=== PATIENT | male | born 1940 | race Caucasian/White ===

== ENCOUNTER 2018-01-23 15:24 | Inpatient (IN) | payer MEDICARE, OTHER ==
[~2018-01-23] VITALS: Ht 185.4 cm; Wt 71.2 kg
[2018-01-23 16:56] LABS: Basophils # (auto) 0 uL; Basophils % (auto) 0.4 % (0.0-2.0); Eosinophils # (auto) 0 uL; Eosinophils % (auto) 0.1 % (0.0-7.0); Hematocrit 41.2 % (41.0-53.0); Hemoglobin 13.4 g/dL (13.5-17.5); Lymphocytes # (auto) 0.8 uL; Lymphocytes % (auto) 6.7 % (10.0-50.0); Mean Corpuscular Hemoglobin 29.6 pg (28.0-32.0); Mean Corpuscular Hgb Conc. 32.6 g/dL (32.0-36.0); Mean Corpuscular Volume 90.8 fL (80.0-100.0); Monocytes # (auto) 0.7 uL; Monocytes % (auto) 5.9 % (0.0-12.0); Neutrophils % (auto) 86.9 % (37.0-80.0); Nucleated Red Blood Cells % 0.2 %; Platelet Count (auto) 138 10^3/uL (140-450); Red Blood Cells 4.54 10^6/uL (4.5-5.90); Red Cell Distribution Width 18.7 % (11.8-14.3); White Blood Cell 11.5 10^3/uL (4.4-10.8)
[2018-01-23 17:06] LABS: Albumin 3.9 g/dL (3.4-5.0); BUN/Creatinine Ratio 48.8; Calcium 9.3 mg/dL (8.5-10.1); Potassium 3.9 mmol/L (3.5-5.1)
[2018-01-23 17:11] LABS: Bilirubin, Total 4.1 mg/dL (0.2-1.0)
[2018-01-23] MEDS ORDERED: SODIUM CHLORIDE 0.9% 1,000 ML IV ONE (19:40)
[2018-01-23] MEDS ORDERED: cefTRIAXone 1GM/50ML D5W 50 ML IV ONE (19:45)
[2018-01-23 21:15] LABS: INR 1.26 (0.9-1.15); Partial Thromboplastin Time 27.9 sec (23.78-33.04); Prothrombin Time 13.3 sec (9.27-12.13)
[2018-01-23] MEDS ORDERED: TEMAZEPAM 15 MG CAP PO PRN (23:30)
[2018-01-23] MEDS ORDERED: DOCUSATE SOD 100 MG CAP PO PRN (23:30)
[2018-01-23] MEDS ORDERED: HYDROcodone-ACET 5/325MG TAB PO PRN (23:30)
[2018-01-23] MEDS ORDERED: NITROGLYCERIN 0.4 MG SL TAB SL PRN (23:30)
[2018-01-23] MEDS ORDERED: MORPHINE SULFATE 4 MG/ML SYR/VIAL IV PRN (23:30)
[2018-01-23] MEDS ORDERED: ACETAMINOPHEN 325 MG TAB PO PRN (23:30)
[2018-01-23] MEDS ORDERED: ONDANSETRON HCL 4 MG/2 ML VIAL IV PRN (23:30)
[2018-01-24 05:00] VITALS: BP 111/65
[2018-01-24 06:27] LABS: Basophils # (auto) 0 uL; Basophils % (auto) 0.1 % (0.0-2.0); Eosinophils # (auto) 0 uL; Hematocrit 41.2 % (41.0-53.0); Hemoglobin 13.6 g/dL (13.5-17.5); Lymphocytes # (auto) 0.6 uL; Lymphocytes % (auto) 6.2 % (10.0-50.0); Mean Corpuscular Hemoglobin 30.3 pg (28.0-32.0); Monocytes # (auto) 0.5 uL; Monocytes % (auto) 5.3 % (0.0-12.0); Neutrophils # (auto) 8.7 uL; Neutrophils % (auto) 88.4 % (37.0-80.0); Nucleated Red Blood Cells % 0.1 %; Platelet Count (auto) 132 10^3/uL (140-450); Red Blood Cells 4.48 10^6/uL (4.5-5.90); Red Cell Distribution Width 18.8 % (11.8-14.3); White Blood Cell 9.8 10^3/uL (4.4-10.8)
[2018-01-24 06:45] LABS: Potassium 3.7 mmol/L (3.5-5.1)
[2018-01-24 06:52] LABS: Albumin 3.5 g/dL (3.4-5.0); BUN/Creatinine Ratio 51.4; Bilirubin, Total 3.3 mg/dL (0.2-1.0); Calcium 9.1 mg/dL (8.5-10.1); Total Protein 7.2 g/dL (6.4-8.2)
[2018-01-24 09:19] VITALS: BP 110/79
[2018-01-24] MEDS ORDERED: FAMOTIDINE 20 MG TAB PO SCH (10:00)
[2018-01-24] MEDS ORDERED: ENOXAPARIN SOD 30 MG/0.3 ML SYRINGE SC SCH (10:00)
[2018-01-24] MEDS: FAMOTIDINE 20 MG TAB PO SCH (10:00)
[2018-01-24] MEDS: ZINC SULFATE 220mg CAP or TAB PO SCH (10:00)
[2018-01-24] MEDS: ENOXAPARIN SOD 40 MG/0.4 ML SYRINGE SC SCH ×2 (10:31→10:35)
[2018-01-24] MEDS ORDERED: DILTIAZEM HCL 25 MG/5 ML VIAL IV ONE (11:15)
[2018-01-24] MEDS ORDERED: chlordiazePOXIDE HCL 25 MG CAP PO PRN (11:15)
[2018-01-24] MEDS: SODIUM CHLORIDE 0.9% 1,000 ML IV SCH ×2 (11:32→17:41)
[2018-01-24 11:47] LABS: Folate (Folic Acid) 17.32 ng/mL (5.38-24)
[2018-01-24] MEDS: THIAMINE INJ 100 MG, MULTIPLE VITAMIN 10 ML, FOLIC ACID 1 MG, MAGNESIUM SULF SDV 50% 8 ... IV SCH ×5 (12:38)
[2018-01-24 12:47] VITALS: BP 114/71
[2018-01-24 17:00] VITALS: BP 128/80
[2018-01-24] MEDS ORDERED: DIGO0.1262 PO (17:25)
[2018-01-24] MEDS ORDERED: APIX2.5T OR (17:25)
[2018-01-24] MEDS ORDERED: LEVO150T10 PO (17:25)
[2018-01-24] MEDS ORDERED: POTA1TAB61 PO (17:26)
[2018-01-24] MEDS ORDERED: METO2.5T11 PO (17:28)
[2018-01-24] MEDS ORDERED: MAGN400C3 PO (17:33)
[2018-01-24] MEDS ORDERED: ATOR20TA50 PO (17:33)
[2018-01-24] MEDS ORDERED: ZOLP12.564 PO (17:33)
[2018-01-24] MEDS ORDERED: METO25TA4 PO (17:33)
[2018-01-24] MEDS ORDERED: FURO40TA4 PO (17:33)
[2018-01-24] MEDS ORDERED: DIGOXIN (250MCG/ML) 2 ML AMPULE IV ONE (19:00)
[2018-01-24 22:00] VITALS: BP 129/65
[2018-01-25] MEDS: DILTIAZEM HCL 25 MG/5 ML VIAL IV SCH ×6 (02:41→22:00)
[2018-01-25 05:00] VITALS: BP 119/57
[2018-01-25] MEDS: SODIUM CHLORIDE 0.9% 1,000 ML IV SCH ×4 (05:27→20:35)
[2018-01-25 09:14] VITALS: BP 144/63
[2018-01-25] MEDS: DIGOXIN (250MCG/ML) 2 ML AMPULE IV SCH (09:37)
[2018-01-25] MEDS: ENOXAPARIN SOD 40 MG/0.4 ML SYRINGE SC SCH (09:37)
[2018-01-25] MEDS ORDERED: ALBUTEROL SULF 2.5 MG/0.5ML(0.5%) NEB SOLN ONE (10:46)
[2018-01-25 12:30] VITALS: BP 122/63
[2018-01-25] MEDS: THIAMINE INJ 100 MG, MULTIPLE VITAMIN 10 ML, FOLIC ACID 1 MG, MAGNESIUM SULF SDV 50% 8 ... IV SCH ×5 (12:37)
[2018-01-25 13:14] LABS: Urine Bacteria NONE SEEN /hpf (None Seen); Urine Blood 1+ /uL (Negative); Urine Hyaline Cast FEW /lpf (0 - 2); Urine Specific Gravity 1.018 (1.001-1.035); Urine WBC 193 /hpf (0 - 3); Urine WBC Clumps PRESENT /hpf (None Seen)
[2018-01-25] MEDS: ALBUTEROL SULF 2.5 MG/0.5ML(0.5%) NEB SOLN NEB PRN ×3 (13:15→21:06)
[2018-01-25] MEDS: IPRATROPIUM BROM 0.5 MG/2.5ML INH SOL NEB SCH ×2 (13:15→18:07)
[2018-01-25 17:22] VITALS: BP 122/63
[2018-01-25 17:34] VITALS: BP 122/56
[2018-01-25 22:00] VITALS: BP 115/67
[2018-01-25] MEDS: LORazepam 2MG/ML-1ML VIAL IV PRN (23:27)
[2018-01-26] MEDS ORDERED: FUROSEMIDE 40 MG/4 ML VIAL IV ONE (01:30)
[2018-01-26] MEDS: DILTIAZEM HCL 25 MG/5 ML VIAL IV SCH ×7 (02:00→22:01)
[2018-01-26] MEDS: SODIUM CHLORIDE 0.9% 1,000 ML IV SCH ×4 (03:15→22:01)
[2018-01-26 05:00] VITALS: BP 123/63
[2018-01-26] MEDS: ALBUTEROL SULF 2.5 MG/0.5ML(0.5%) NEB SOLN NEB PRN ×4 (06:07→18:58)
[2018-01-26] MEDS: IPRATROPIUM BROM 0.5 MG/2.5ML INH SOL NEB SCH ×4 (06:07→18:58)
[2018-01-26 08:48] VITALS: BP 125/65
[2018-01-26] MEDS: ZINC SULFATE 220mg CAP or TAB PO SCH (10:00)
[2018-01-26] MEDS: FAMOTIDINE 20 MG TAB PO SCH (10:00)
[2018-01-26] MEDS: DIGOXIN (250MCG/ML) 2 ML AMPULE IV SCH (11:03)
[2018-01-26] MEDS: LORazepam 2MG/ML-1ML VIAL IV PRN ×2 (11:05→22:01)
[2018-01-26] MEDS: ENOXAPARIN SOD 40 MG/0.4 ML SYRINGE SC SCH (12:22)
[2018-01-26 13:00] VITALS: BP 134/65
[2018-01-26] MEDS ORDERED: LEVOFLOXACIN 500MG 100 ML IV STA (13:47)
[2018-01-26] MEDS ORDERED: methylPREDNISolone SOD SUCC 125 MG/2 ML VL IM STA (13:55)
[2018-01-26 14:28] LABS: Basophils # (auto) 0 uL; Basophils % (auto) 0.2 % (0.0-2.0); Eosinophils # (auto) 0 uL; Hematocrit 46.4 % (41.0-53.0); Hemoglobin 14.7 g/dL (13.5-17.5); Lymphocytes # (auto) 0.6 uL; Lymphocytes % (auto) 5.6 % (10.0-50.0); Mean Corpuscular Hgb Conc. 31.7 g/dL (32.0-36.0); Mean Corpuscular Volume 94.6 fL (80.0-100.0); Monocytes # (auto) 0.5 uL; Monocytes % (auto) 4.9 % (0.0-12.0); Neutrophils # (auto) 9.5 uL; Neutrophils % (auto) 89.3 % (37.0-80.0); Nucleated Red Blood Cells % 0.1 %; Platelet Count (auto) 104 10^3/uL (140-450); Red Blood Cells 4.91 10^6/uL (4.5-5.90); Red Cell Distribution Width 19.7 % (11.8-14.3); White Blood Cell 10.6 10^3/uL (4.4-10.8)
[2018-01-26 14:53] LABS: BUN/Creatinine Ratio 41.1; Calcium 8.6 mg/dL (8.5-10.1); Potassium 3.7 mmol/L (3.5-5.1)
[2018-01-26 14:56] LABS: Bilirubin, Total 2.5 mg/dL (0.2-1.0); Total Protein 6.8 g/dL (6.4-8.2)
[2018-01-26] MEDS: THIAMINE INJ 100 MG, MULTIPLE VITAMIN 10 ML, FOLIC ACID 1 MG, MAGNESIUM SULF SDV 50% 8 ... IV SCH ×5 (14:57)
[2018-01-26] MEDS ORDERED: cefTRIAXone 1GM/50ML D5W 50 ML IV ONE (15:15)
[2018-01-26 17:00] VITALS: BP 139/67
[2018-01-26 21:37] VITALS: BP 121/68
[2018-01-27] MEDS: DILTIAZEM HCL 25 MG/5 ML VIAL IV SCH ×6 (02:00→21:39)
[2018-01-27 05:12] VITALS: BP 135/60
[2018-01-27] MEDS: SODIUM CHLORIDE 0.9% 1,000 ML IV SCH ×3 (05:26→19:15)
[2018-01-27] MEDS: IPRATROPIUM BROM 0.5 MG/2.5ML INH SOL NEB SCH ×5 (05:49→22:31)
[2018-01-27] MEDS: LORazepam 2MG/ML-1ML VIAL IV PRN (06:57)
[2018-01-27] MEDS ORDERED: LEVOTHYROXINE SODIUM 50 MCG TAB PO SCH (07:00)
[2018-01-27] MEDS: cefTRIAXone 1GM/50ML D5W 50 ML IV SCH (09:37)
[2018-01-27] MEDS: ZINC SULFATE 220mg CAP or TAB PO SCH (10:00)
[2018-01-27] MEDS ORDERED: ENOXAPARIN SOD 60 MG/0.6 ML SYRINGE SC SCH (10:00)
[2018-01-27] MEDS ORDERED: methylPREDNISolone SOD SUCC 125 MG/2 ML VL IV ONE (10:00)
[2018-01-27] MEDS ORDERED: FAMOTIDINE 20 MG TAB PO SCH (10:00)
[2018-01-27] MEDS: LEVOTHYROXINE SODIUM 100 MCG/5 ML INJ IV SCH (10:10)
[2018-01-27] MEDS: FAMOTIDINE (10MG/ML) 2ML VL IV SCH ×2 (10:10→21:39)
[2018-01-27] MEDS: ENOXAPARIN SOD 60 MG/0.6 ML SYRINGE SC SCH ×2 (10:11→21:39)
[2018-01-27] MEDS: DIGOXIN (250MCG/ML) 2 ML AMPULE IV SCH (10:11)
[2018-01-27] MEDS: THIAMINE INJ 100 MG, MULTIPLE VITAMIN 10 ML, FOLIC ACID 1 MG, MAGNESIUM SULF SDV 50% 8 ... IV SCH ×5 (14:14)
[2018-01-27] MEDS ORDERED: HALOPERIDOL LACTATE 5 MG/ML INJ VIAL IM PRN (17:15)
[2018-01-27 22:00] VITALS: BP 117/66
[2018-01-27] MEDS: BUDESONIDE (INHALATION) 0.5 MG/2 ML NEB NEB SCH (22:31)
[2018-01-28] MEDS: SODIUM CHLORIDE 0.9% 1,000 ML IV SCH ×4 (01:55→22:03)
[2018-01-28] MEDS: DILTIAZEM HCL 25 MG/5 ML VIAL IV SCH ×6 (02:43→22:03)
[2018-01-28 05:00] VITALS: BP 111/56
[2018-01-28] MEDS: IPRATROPIUM BROM 0.5 MG/2.5ML INH SOL NEB SCH ×4 (06:30→18:36)
[2018-01-28] MEDS: DIGOXIN (250MCG/ML) 2 ML AMPULE IV SCH (10:00)
[2018-01-28] MEDS ORDERED: IPRATROPIUM BROM 0.5 MG/2.5ML INH SOL ONE ×3 (10:26→18:07)
[2018-01-28] MEDS ORDERED: BUDESONIDE (INHALATION) 0.5 MG/2 ML NEB ONE ×2 (10:26→18:07)
[2018-01-28] MEDS: BUDESONIDE (INHALATION) 0.5 MG/2 ML NEB NEB SCH ×2 (10:28→18:36)
[2018-01-28] MEDS: cefTRIAXone 1GM/50ML D5W 50 ML IV SCH (10:57)
[2018-01-28] MEDS: ZINC SULFATE 220mg CAP or TAB PO SCH (10:57)
[2018-01-28] MEDS: LEVOTHYROXINE SODIUM 100 MCG/5 ML INJ IV SCH (10:57)
[2018-01-28] MEDS: ENOXAPARIN SOD 60 MG/0.6 ML SYRINGE SC SCH ×2 (10:57→22:03)
[2018-01-28] MEDS: FAMOTIDINE (10MG/ML) 2ML VL IV SCH ×2 (10:57→22:03)
[2018-01-28] MEDS: THIAMINE INJ 100 MG, MULTIPLE VITAMIN 10 ML, FOLIC ACID 1 MG, MAGNESIUM SULF SDV 50% 8 ... IV SCH ×5 (12:00)
[2018-01-28 17:18] VITALS: BP 111/56
[2018-01-28] MEDS ORDERED: ALBUTEROL SULF 2.5 MG/0.5ML(0.5%) NEB SOLN ONE (18:07)
[2018-01-28] MEDS: AMPICILLIN INJ 1 GM in SODIUM CHL 0.9% 50 ML IV SCH (18:16)
[2018-01-28] MEDS: ALBUTEROL SULF 2.5 MG/0.5ML(0.5%) NEB SOLN NEB PRN (18:36)
[2018-01-28] MEDS ORDERED: FUROSEMIDE 40 MG/4 ML VIAL IV ONE (21:30)
[2018-01-28 22:00] VITALS: BP 116/81
[2018-01-29] MEDS: AMPICILLIN INJ 1 GM in SODIUM CHL 0.9% 50 ML IV SCH ×5 (00:14→23:40)
[2018-01-29 02:40] VITALS: BP 130/96
[2018-01-29] MEDS: DILTIAZEM HCL 25 MG/5 ML VIAL IV SCH ×6 (03:01→22:00)
[2018-01-29] MEDS: SODIUM CHLORIDE 0.9% 1,000 ML IV SCH ×4 (04:35→23:41)
[2018-01-29 05:00] VITALS: BP 143/59
[2018-01-29] MEDS: IPRATROPIUM BROM 0.5 MG/2.5ML INH SOL NEB SCH ×4 (06:10→18:28)
[2018-01-29 08:49] VITALS: BP 141/63
[2018-01-29] MEDS: BUDESONIDE (INHALATION) 0.5 MG/2 ML NEB NEB SCH ×2 (09:57→18:28)
[2018-01-29] MEDS: FAMOTIDINE (10MG/ML) 2ML VL IV SCH ×2 (10:00→21:20)
[2018-01-29] MEDS: DIGOXIN (250MCG/ML) 2 ML AMPULE IV SCH (10:00)
[2018-01-29] MEDS: THIAMINE INJ 100 MG, MULTIPLE VITAMIN 10 ML, FOLIC ACID 1 MG, MAGNESIUM SULF SDV 50% 8 ... IV SCH ×5 (12:00)
[2018-01-29 13:00] VITALS: BP 140/61
[2018-01-29] MEDS: ENOXAPARIN SOD 60 MG/0.6 ML SYRINGE SC SCH ×2 (13:23→21:20)
[2018-01-29] MEDS: ZINC SULFATE 220mg CAP or TAB PO SCH (13:23)
[2018-01-29 17:00] VITALS: BP 117/57
[2018-01-29] MEDS: LEVOTHYROXINE SODIUM 100 MCG/5 ML INJ IV SCH (17:54)
[2018-01-29 21:30] VITALS: BP 125/61
[2018-01-30] MEDS: SODIUM CHLORIDE 0.9% 1,000 ML IV SCH ×3 (02:00→15:19)
[2018-01-30] MEDS: DILTIAZEM HCL 25 MG/5 ML VIAL IV SCH ×6 (02:00→22:42)
[2018-01-30 04:30] VITALS: BP 121/69
[2018-01-30] MEDS: AMPICILLIN INJ 1 GM in SODIUM CHL 0.9% 50 ML IV SCH ×3 (05:37→19:02)
[2018-01-30] MEDS: IPRATROPIUM BROM 0.5 MG/2.5ML INH SOL NEB SCH ×4 (06:36→18:39)
[2018-01-30 08:32] LABS: Albumin 3.1 g/dL (3.4-5.0); Calcium 8.6 mg/dL (8.5-10.1); Potassium 4.7 mmol/L (3.5-5.1)
[2018-01-30 08:37] LABS: BUN/Creatinine Ratio 45.2; Bilirubin, Total 1.6 mg/dL (0.2-1.0); Total Protein 6.8 g/dL (6.4-8.2)
[2018-01-30 09:00] VITALS: BP 119/53
[2018-01-30] MEDS: DIGOXIN (250MCG/ML) 2 ML AMPULE IV SCH (09:34)
[2018-01-30] MEDS: ENOXAPARIN SOD 60 MG/0.6 ML SYRINGE SC SCH ×2 (09:35→22:42)
[2018-01-30] MEDS: LEVOTHYROXINE SODIUM 100 MCG/5 ML INJ IV SCH (09:35)
[2018-01-30] MEDS: FAMOTIDINE (10MG/ML) 2ML VL IV SCH ×2 (09:35→22:42)
[2018-01-30] MEDS: ZINC SULFATE 220mg CAP or TAB PO SCH (09:38)
[2018-01-30] MEDS: BUDESONIDE (INHALATION) 0.5 MG/2 ML NEB NEB SCH ×2 (09:59→18:38)
[2018-01-30 13:00] VITALS: BP 112/50
[2018-01-30] MEDS: THIAMINE INJ 100 MG, MULTIPLE VITAMIN 10 ML, FOLIC ACID 1 MG, MAGNESIUM SULF SDV 50% 8 ... IV SCH ×5 (13:07)
[2018-01-30] MEDS ORDERED: IOHEXOL 300 MG/ML 100ML BOTTLE IJ ONE (15:09)
[2018-01-30] MEDS ORDERED: LIDOCAINE 2% (LOCAL ANESTH.) PF 5ml SDV ONE (15:15)
[2018-01-30 16:57] LABS: Creatinine, Urine 70 mg/dL (30.0-125.0); Sodium Urine 25 mmol/L (40-220)
[2018-01-30] MEDS: ALBUTEROL SULF 2.5 MG/0.5ML(0.5%) NEB SOLN NEB PRN (18:38)
[2018-01-30 20:08] LABS: Albumin 3.1 g/dL (3.4-5.0)
[2018-01-30 20:13] LABS: Bilirubin, Total 1.8 mg/dL (0.2-1.0); Total Protein 6.9 g/dL (6.4-8.2)
[2018-01-30 20:37] LABS: Basophils # (auto) 0.1 uL; Eosinophils # (auto) 0 uL; Hematocrit 47.9 % (41.0-53.0); Neutrophils # (auto) 8.4 uL; White Blood Cell 9.8 10^3/uL (4.4-10.8)
[2018-01-30 20:47] LABS: Basophils % (auto) 1.3 % (0.0-2.0); Lymphocytes # (auto) 0.7 uL; Monocytes # (auto) 0.5 uL; Monocytes % (auto) 5.3 % (0.0-12.0); Neutrophils % (auto) 86.4 % (37.0-80.0); Nucleated Red Blood Cells % 1.1 %
[2018-01-30 20:48] LABS: Hemoglobin 14.3 g/dL (13.5-17.5); Mean Corpuscular Hemoglobin 30.4 pg (28.0-32.0); Mean Corpuscular Hgb Conc. 29.9 g/dL (32.0-36.0); Mean Corpuscular Volume 101.6 fL (80.0-100.0); Red Blood Cells 4.72 10^6/uL (4.5-5.90); Red Cell Distribution Width 21.8 % (11.8-14.3)
[2018-01-30 20:49] LABS: Platelet Count (auto) 121 10^3/uL (140-450)
[2018-01-30 21:10] VITALS: BP 100/41
[2018-01-30 21:58] VITALS: BP 92/37
[2018-01-30] MEDS: LORazepam 2MG/ML-1ML VIAL IV PRN (22:43)
[2018-01-31] MEDS: AMPICILLIN INJ 1 GM in SODIUM CHL 0.9% 50 ML IV SCH ×5 (00:33→23:59)
[2018-01-31] MEDS: DILTIAZEM HCL 25 MG/5 ML VIAL IV SCH ×6 (02:00→22:00)
[2018-01-31 04:59] VITALS: BP 102/39
[2018-01-31 06:14] LABS: Basophils # (auto) 0 uL; Basophils % (auto) 0.1 % (0.0-2.0); Eosinophils # (auto) 0 uL; Hemoglobin 13.6 g/dL (13.5-17.5); Monocytes # (auto) 0.6 uL; Neutrophils # (auto) 8.3 uL
[2018-01-31 06:17] LABS: Lymphocytes # (auto) 0.5 uL; Lymphocytes % (auto) 5.5 % (10.0-50.0); Mean Corpuscular Hemoglobin 30.4 pg (28.0-32.0); Mean Corpuscular Hgb Conc. 29.6 g/dL (32.0-36.0); Mean Corpuscular Volume 102.6 fL (80.0-100.0); Monocytes % (auto) 6.5 % (0.0-12.0); Neutrophils % (auto) 87.9 % (37.0-80.0); Nucleated Red Blood Cells % 1.2 %; Platelet Count (auto) 115 10^3/uL (140-450); Red Blood Cells 4.48 10^6/uL (4.5-5.90); White Blood Cell 9.4 10^3/uL (4.4-10.8)
[2018-01-31 06:36] LABS: Albumin 2.9 g/dL (3.4-5.0); Calcium 8.4 mg/dL (8.5-10.1); Potassium 5.3 mmol/L (3.5-5.1)
[2018-01-31 06:40] LABS: BUN/Creatinine Ratio 45.5; Bilirubin, Total 1.8 mg/dL (0.2-1.0); Phosphorus 5.6 mg/dL (2.5-4.90); Total Protein 6.5 g/dL (6.4-8.2); Uric Acid 14.3 mg/dL (3.5-7.2)
[2018-01-31] MEDS: IPRATROPIUM BROM 0.5 MG/2.5ML INH SOL NEB SCH ×4 (07:04→19:20)
[2018-01-31] MEDS: BUDESONIDE (INHALATION) 0.5 MG/2 ML NEB NEB SCH ×2 (07:04→19:20)
[2018-01-31] MEDS: ALBUTEROL SULF 2.5 MG/0.5ML(0.5%) NEB SOLN NEB PRN (07:07)
[2018-01-31 09:00] VITALS: BP 92/39
[2018-01-31] MEDS: LEVOTHYROXINE SODIUM 100 MCG/5 ML INJ IV SCH (09:13)
[2018-01-31] MEDS: DIGOXIN (250MCG/ML) 2 ML AMPULE IV SCH (09:13)
[2018-01-31] MEDS: FAMOTIDINE (10MG/ML) 2ML VL IV SCH ×2 (09:13→23:59)
[2018-01-31] MEDS: ENOXAPARIN SOD 60 MG/0.6 ML SYRINGE SC SCH ×2 (09:14→23:59)
[2018-01-31] MEDS: ZINC SULFATE 220mg CAP or TAB PO SCH (09:17)
[2018-01-31] MEDS: D5W/SOD CHL 0.45% 1,000 ML IV SCH ×2 (10:30→17:55)
[2018-01-31] MEDS: THIAMINE INJ 100 MG, MULTIPLE VITAMIN 10 ML, FOLIC ACID 1 MG, MAGNESIUM SULF SDV 50% 8 ... IV SCH ×5 (12:33)
[2018-01-31 17:00] VITALS: BP 73/27
[2018-02-01] MEDS: DILTIAZEM HCL 25 MG/5 ML VIAL IV SCH ×3 (02:00→10:00)
[2018-02-01] MEDS: D5W/SOD CHL 0.45% 1,000 ML IV SCH (04:35)
[2018-02-01 05:00] VITALS: BP 67/33
[2018-02-01] MEDS: IPRATROPIUM BROM 0.5 MG/2.5ML INH SOL NEB SCH ×4 (05:43→18:36)
[2018-02-01 06:26] LABS: Hematocrit 52.2 % (41.0-53.0); Red Blood Cells 4.68 10^6/uL (4.5-5.90)
[2018-02-01 06:28] LABS: Hemoglobin 14.2 g/dL (13.5-17.5); Mean Corpuscular Hemoglobin 30.2 pg (28.0-32.0); Mean Corpuscular Hgb Conc. 27.1 g/dL (32.0-36.0); Mean Corpuscular Volume 111.4 fL (80.0-100.0); Platelet Count (auto) 105 10^3/uL (140-450)
[2018-02-01 06:30] LABS: Red Cell Distribution Width 21.7 % (11.8-14.3)
[2018-02-01 06:35] LABS: Basophils % (manual) 0 (0.0-2.0); Blast Cells 0; Eosinophils % (manual) 0 (0-7); Metamyelocytes % 0; Myelocytes % 0; Promyelocytes % 0; Reactive Lymphocytes 0
[2018-02-01] MEDS: AMPICILLIN INJ 1 GM in SODIUM CHL 0.9% 50 ML IV SCH ×3 (06:44→18:02)
[2018-02-01 06:54] LABS: Band Neutrophils % (manual) 9; Lymphocytes % (manual) 5 (10.0-50.0); Monocytes % (manual) 6 (0-12)
[2018-02-01] MEDS: ZINC SULFATE 220mg CAP or TAB PO SCH (10:00)
[2018-02-01] MEDS: DIGOXIN (250MCG/ML) 2 ML AMPULE IV SCH (10:00)
[2018-02-01] MEDS: FAMOTIDINE (10MG/ML) 2ML VL IV SCH ×2 (10:33→22:22)
[2018-02-01] MEDS: ENOXAPARIN SOD 60 MG/0.6 ML SYRINGE SC SCH ×2 (10:33→22:22)
[2018-02-01] MEDS: LEVOTHYROXINE SODIUM 100 MCG/5 ML INJ IV SCH (10:34)
[2018-02-01] MEDS: BUDESONIDE (INHALATION) 0.5 MG/2 ML NEB NEB SCH ×2 (11:02→18:36)
[2018-02-01] MEDS: THIAMINE INJ 100 MG, MULTIPLE VITAMIN 10 ML, FOLIC ACID 1 MG, MAGNESIUM SULF SDV 50% 8 ... IV SCH ×5 (16:00)
[2018-02-01 21:41] VITALS: BP 73/32
[2018-02-02 04:17] VITALS: BP 64/30
[2018-02-02] MEDS: IPRATROPIUM BROM 0.5 MG/2.5ML INH SOL NEB SCH ×4 (06:07→18:44)
[2018-02-02] MEDS: AMPICILLIN INJ 1 GM in SODIUM CHL 0.9% 50 ML IV SCH ×3 (06:29)
[2018-02-02 06:41] LABS: Basophils # (auto) 0 uL; Eosinophils # (auto) 0 uL; Lymphocytes # (auto) 0.7 uL; Monocytes # (auto) 0.7 uL
[2018-02-02 06:44] LABS: Basophils % (auto) 0.2 % (0.0-2.0); Eosinophils % (auto) 0.1 % (0.0-7.0); Hematocrit 44.7 % (41.0-53.0); Hemoglobin 12.8 g/dL (13.5-17.5); Lymphocytes % (auto) 7.6 % (10.0-50.0); Mean Corpuscular Hgb Conc. 28.7 g/dL (32.0-36.0); Mean Corpuscular Volume 104.6 fL (80.0-100.0); Monocytes % (auto) 7.1 % (0.0-12.0); Neutrophils # (auto) 7.9 uL; Platelet Count (auto) 116 10^3/uL (140-450); Red Blood Cells 4.27 10^6/uL (4.5-5.90); White Blood Cell 9.3 10^3/uL (4.4-10.8)
[2018-02-02 06:45] LABS: Nucleated Red Blood Cells % 4.6 %; Red Cell Distribution Width 21.5 % (11.8-14.3)
[2018-02-02 06:53] LABS: BUN/Creatinine Ratio 28.4; Calcium 7.8 mg/dL (8.5-10.1)
[2018-02-02 06:58] LABS: Potassium 6.6 mmol/L (3.5-5.1)
[2018-02-02] MEDS ORDERED: InsuLIN REG 1unit/0.01ml Soln (100units/ml) IV ONE (08:45)
[2018-02-02] MEDS ORDERED: DEXTROSE (50%) 50ML SYRG IV ONE (08:45)
[2018-02-02 09:00] VITALS: BP 63/29
[2018-02-02] MEDS: D5W 5% 1,000 ML IV SCH ×2 (09:35→18:30)
[2018-02-02] MEDS ORDERED: SODIUM CHLORIDE 0.9% 1,000 ML IV ONE (09:45)
[2018-02-02] MEDS: ZINC SULFATE 220mg CAP or TAB PO SCH (10:00)
[2018-02-02] MEDS: BUDESONIDE (INHALATION) 0.5 MG/2 ML NEB NEB SCH ×2 (10:00→18:43)
[2018-02-02] MEDS ORDERED: FAMOTIDINE (10MG/ML) 2ML VL IV SCH (10:00)
[2018-02-02] MEDS: LEVOTHYROXINE SODIUM 100 MCG/5 ML INJ IV SCH (10:32)
[2018-02-02] MEDS ORDERED: FOLIC ACID IV SCH (12:00)
[2018-02-02] MEDS ORDERED: [UNRECOGNIZED DRUG - OTHER] IV SCH (12:00)
[2018-02-02] MEDS ORDERED: MULTIPLE VITAMIN IV SCH (12:00)
[2018-02-02] MEDS ORDERED: THIAMINE IV SCH (12:00)
[2018-02-02] MEDS: AMPICILLIN INJ 500 MG in SODIUM CHL 0.9% 50 ML IV SCH ×2 (12:19→17:33)
[2018-02-02 13:00] VITALS: BP 63/33
[2018-02-02 17:00] VITALS: BP 65/33
[2018-02-02 18:40] VITALS: BP 71/33
[2018-02-02] MEDS: ALBUTEROL SULF 2.5 MG/0.5ML(0.5%) NEB SOLN NEB PRN (18:43)
[2018-02-02 21:52] VITALS: BP 61/29
[2018-02-02] MEDS ORDERED: ENOXAPARIN SOD 60 MG/0.6 ML SYRINGE SC SCH (22:00)
[2018-02-03] MEDS: AMPICILLIN INJ 500 MG in SODIUM CHL 0.9% 50 ML IV SCH ×2
== END 2018-02-03 02:30 | disposition expired | DRG 682 ==
LOC: ER 15:24 → EDBD 15:24 → TELE-EAST 23:25
PROVIDERS: ADMIT Internal Medicine; ATTEND Internal Medicine
PROC: 0T9B30Z Drainage of Bladder with Drainage Device, Percutaneous Approach (ICD-10-PCS; 2018-01-30)
PROC: 5A09457 Assistance with Respiratory Ventilation, 24-96 Consecutive Hours, Continuous Positive Airway Pressure (ICD-10-PCS; principal; 2018-01-31)
DX: N17.9 Acute kidney failure, unspecified (principal); G93.41 Metabolic encephalopathy; J96.01 Acute respiratory failure with hypoxia; J96.02 Acute respiratory failure with hypercapnia; I48.1 Persistent atrial fibrillation; E46 Unspecified protein-calorie malnutrition; E87.1 Hypo-osmolality and hyponatremia; N39.0 Urinary tract infection, site not specified; E87.4 Mixed disorder of acid-base balance; E87.0 Hyperosmolality and hypernatremia; F10.239 Alcohol dependence with withdrawal, unspecified; N13.6 Pyonephrosis; E86.0 Dehydration; D69.6 Thrombocytopenia, unspecified; L98.499 Non-pressure chronic ulcer of skin of other sites with unspecified severity; Z66 Do not resuscitate; Z51.5 Encounter for palliative care; F10.20 Alcohol dependence, uncomplicated; B95.2 Enterococcus as the cause of diseases classified elsewhere; R62.7 Adult failure to thrive; I67.2 Cerebral atherosclerosis; N40.0 Benign prostatic hyperplasia without lower urinary tract symptoms; E87.5 Hyperkalemia; I50.9 Heart failure, unspecified; I11.0 Hypertensive heart disease with heart failure; Z91.19 Patient's noncompliance with other medical treatment and regimen; F03.90 Unspecified dementia, unspecified severity, without behavioral disturbance, psychotic disturbance, mood disturbance, and anxiety; J44.9 Chronic obstructive pulmonary disease, unspecified; D64.9 Anemia, unspecified; E03.9 Hypothyroidism, unspecified; E83.39 Other disorders of phosphorus metabolism; F17.200 Nicotine dependence, unspecified, uncomplicated; I27.20 Pulmonary hypertension, unspecified; Z74.01 Bed confinement status; Z79.01 Long term (current) use of anticoagulants; Z85.820 Personal history of malignant melanoma of skin; Z99.81 Dependence on supplemental oxygen; Z79.899 Other long term (current) drug therapy; Z68.20 Body mass index [BMI] 20.0-20.9, adult
CPT/HCPCS: 36415; 36600; 70450; 71045; 74018; 76000; 76775; 76942; 80048; 80053; 80076; 80162; 81001; 82140; 82570; 82607; 82746; 82805; 82962; 83735; 83880; 83935; 84100; 84154; 84300; 84443; 84484; 84550; 85007; 85025; 85027; 85610; 85730; 87086; 87088; 87186; 92610; 93005; 94640; 94660; 95819; 96365; 96375; 96376; 97110; 97163; 97530; A4223; C1729; G0378; J0696; J1815; J1956; J2001; J3490